=== PATIENT | male | born 1980 | race Caucasian/White ===

== ENCOUNTER 2024-10-13 10:58 | Day surgery (SDC) | payer OTHER ==
[2024-10-05 12:55] VITALS: BMI 37.3
[2024-10-13] MEDS ORDERED: AFRIN NASAL MIST 15 ML BOT ONE ×2 (11:32→12:06)
[2024-10-13] MEDS ORDERED: Oxymetazoline HCl 0.05% ( 15 ML ) ONE (11:35)
[2024-10-13] MEDS ORDERED: PROPOFOL 20 ML ONE ×2 (12:01→13:36)
[2024-10-13] MEDS ORDERED: Lidocaine 1% PF 5 ML VIAL ONE (12:01)
[2024-10-13] MEDS ORDERED: fentaNYL 50 mcg/mL 1 mL Vial ONE ×2 (12:03→13:55)
[2024-10-13] MEDS ORDERED: Lidocaine 4% PF 5 ML AMP ONE (12:04)
[2024-10-13] MEDS ORDERED: Mupirocin 2% Ointment 22 GM Tube ONE (12:06)
[2024-10-13] MEDS ORDERED: Lidocaine 1% w/Epinephrine 1:200K 30 ML VIAL ONE (12:07)
[2024-10-13] MEDS ORDERED: Ferric Subsulfate 8 ML TOPICAL SOLN ONE (12:08)
[2024-10-13] MEDS ORDERED: Ondansetron PF 4 MG/2 ML Vial ONE (12:38)
[2024-10-13] MEDS ORDERED: Dexamethasone 20 MG/5 ML VIAL ONE (13:36)
[2024-10-13] MEDS ORDERED: Hydrocodone-Acetamin 15 ML UDCUP ONE (15:32)
== END 2024-10-13 16:45 | disposition home or self-care (01) ==
LOC: CSHSDC 10:58
PROVIDERS: ATTEND Otolaryngology Plastic Surgery within the Head & Neck
PROC: 09TL7ZZ Resection of Nasal Turbinate, Via Natural or Artificial Opening (ICD-10-PCS; principal; 2024-10-13)
PROC: 09SM0ZZ Reposition Nasal Septum, Open Approach (ICD-10-PCS; principal; 2024-10-13)
PROC: 0CTNXZZ Resection of Uvula, External Approach (ICD-10-PCS; principal; 2024-10-13)
PROC: 0CTPXZZ Resection of Tonsils, External Approach (ICD-10-PCS; principal; 2024-10-13)
DX: J34.2 Deviated nasal septum (principal); J35.1 Hypertrophy of tonsils; J34.3 Hypertrophy of nasal turbinates; K13.79 Other lesions of oral mucosa; K21.9 Gastro-esophageal reflux disease without esophagitis; E78.00 Pure hypercholesterolemia, unspecified; E11.9 Type 2 diabetes mellitus without complications; G47.33 Obstructive sleep apnea (adult) (pediatric); Z79.84 Long term (current) use of oral hypoglycemic drugs; Z79.899 Other long term (current) drug therapy
CPT/HCPCS: 88302; 88304; 93005; 93010; J1100; J2405; J2704; J3010